=== PATIENT | male | born 1990 | race Caucasian/White ===

== ENCOUNTER 2017-11-23 17:38 | Emergency (ER) | payer OTHER ==
[~2017-11-23] VITALS: Ht 172.7 cm; Wt 70.0 kg
[2017-11-23] MEDS: BUPIVAcaine/PF 2.5 mg/ml (0.25%) 30ml vial IJ ONE (19:49)
[2017-11-23] MEDS ORDERED: CEPH500C2 PO (20:49)
[2017-11-23] MEDS ORDERED: HYDR-3965 PO (20:49)
[2017-11-23 21:27] VITALS: BP 101/48
== END 2017-11-23 21:30 | disposition home or self-care (01) ==
LOC: ER 17:39
DX: S66.922A Laceration of unspecified muscle, fascia and tendon at wrist and hand level, left hand, initial encounter (principal); Z87.891 Personal history of nicotine dependence; Z98.890 Other specified postprocedural states; W26.0XXA Contact with knife, initial encounter; Y93.89 Activity, other specified; Y92.000 Kitchen of unspecified non-institutional (private) residence as the place of occurrence of the external cause; Y99.8 Other external cause status
CPT/HCPCS: 12001; 73130; 99284; A6449; J3490

== ENCOUNTER 2017-11-25 09:05 | Emergency (ER) | payer OTHER ==
[~2017-11-25] VITALS: Ht 172.7 cm; Wt 70.0 kg
[~2017-11-25 09:05] MED LIST: CEPH500C2 PO; HYDR-3965 PO
[2017-11-25] MEDS ORDERED: normal saline 1000ml 1,000 ML IV SCH (09:44)
[2017-11-25] MEDS ORDERED: ondansetron/PF 4mg/2ml inj IV PRN ×2 (09:45→12:05)
[2017-11-25] MEDS ORDERED: magnesium hydroxide 30ml (MOM) UD suspension PO PRN (09:45)
[2017-11-25] MEDS ORDERED: acetaminophen 325mg tablet PO PRN (09:45)
[2017-11-25] MEDS ORDERED: mag hydrox/Alum hydrox/simeth 30ml oral suspension PO PRN (09:45)
[2017-11-25] MEDS ORDERED: BUPIVAcaine/PF 2.5 mg/ml (0.25%) 30ml vial ONE (10:59)
[2017-11-25] MEDS ORDERED: dexamethasone sod phosphate 4mg/ml inj. ONE (11:20)
[2017-11-25] MEDS ORDERED: sevoflurane 250ml liquid IH ONE (11:20)
[2017-11-25] MEDS ORDERED: ondansetron/PF 4mg/2ml inj ONE (11:20)
[2017-11-25] MEDS ORDERED: fentaNYL/PF 50MCG/1 ML 2ML syringe ONE (11:25)
[2017-11-25] MEDS ORDERED: midazolam 2 mg/2 ml injection ONE ×2 (11:26)
[2017-11-25] MEDS ORDERED: ROPIVAcaine 0.5% (5mg/ml) 30ml vial ONE (11:26)
[2017-11-25] MEDS ORDERED: propofol inj 20 ML IV ONE (11:29)
[2017-11-25] MEDS ORDERED: LIDOcaine 2% (20mg/ml) 5ml vial ONE (11:29)
[2017-11-25] MEDS ORDERED: ringers solution, lacted 1,000 ML IV SCH (12:04)
[2017-11-25] MEDS ORDERED: meperidine/PF 25mg/ml syringe IV PRN ×3 (12:05)
[2017-11-25] MEDS ORDERED: proCHLORperazine 10 MG/2 ml inj IV PRN (12:05)
[2017-11-25] MEDS ORDERED: morphine 2 MG/ML inj. syringe IV PRN ×2 (12:05)
[2017-11-25 12:37] VITALS: BP 120/78
[2017-11-25 12:47] VITALS: BP 120/78
[2017-11-25 12:57] VITALS: BP 142/55
[2017-11-25 13:07] VITALS: BP 126/72
== END 2017-11-25 13:17 | disposition home or self-care (01) ==
LOC: ER 09:06
DX: S66.127A Laceration of flexor muscle, fascia and tendon of left little finger at wrist and hand level, initial encounter (principal); S61.412A Laceration without foreign body of left hand, initial encounter; Z98.890 Other specified postprocedural states; W26.0XXA Contact with knife, initial encounter; Y93.89 Activity, other specified; Y92.89 Other specified places as the place of occurrence of the external cause; Y99.8 Other external cause status
CPT/HCPCS: 26350; 99285; A6222; A6449; J2001; J2250; J2704; J2795; J3010; J3490; J7120; A7000; J1100; J2405